=== PATIENT | female | born 1965 | race Two or more races ===

== ENCOUNTER 2016-07-06 10:44 | Emergency (ER) | payer SELFPAY ==
[~2016-07-06] VITALS: Ht 157.5 cm; Wt 66.2 kg
[2016-07-06 16:56] LABS: Basophils # (auto) 0 uL; Basophils % (auto) 0.6 % (0.0-2.0); Eosinophils # (auto) 0.1 uL; Eosinophils % (auto) 1.2 % (0.0-7.0); Hematocrit 38.9 % (36.0-46.0); Hemoglobin 12.9 g/dL (12.2-16.2); Lymphocytes # (auto) 0.9 uL; Lymphocytes % (auto) 15.6 % (10.0-50.0); Mean Corpuscular Hemoglobin 28.2 pg (28.0-32.0); Mean Corpuscular Hgb Conc. 33.2 g/dL (32.0-36.0); Mean Corpuscular Volume 85.1 fL (80.0-100.0); Mean Platelet Volume 8.5 fL (7.4-10.4); Monocytes # (auto) 0.3 uL; Monocytes % (auto) 4.2 % (0.0-12.0); Neutrophils # (auto) 4.7 uL; Neutrophils % (auto) 78.4 % (37.0-80.0); Platelet Count (auto) 272 10^3/uL (140-450); Red Cell Distribution Width 14.8 % (11.6-16.0)
[2016-07-06] MEDS ORDERED: MORPHINE SULFATE 4 MG/ML SYRG IV ONE (17:00)
[2016-07-06] MEDS ORDERED: ONDANSETRON HCL 4 MG/2 ML VIAL IV ONE (17:00)
[2016-07-06 17:14] LABS: Albumin 3.8 g/dL (3.4-5.0); BUN/Creatinine Ratio 15.4; Calcium 8.7 mg/dL (8.5-10.1); Potassium 3.5 mmol/L (3.5-5.1)
[2016-07-06 17:17] LABS: Bilirubin, Total 0.3 mg/dL (0.2-1.0); Total Protein 7.9 g/dL (6.4-8.2)
[2016-07-06 19:30] VITALS: BP 115/74
== END 2016-07-06 20:43 | disposition home or self-care (01) ==
LOC: ER 10:46
DX: G89.4 Chronic pain syndrome (principal); M54.2 Cervicalgia; R73.9 Hyperglycemia, unspecified; M06.9 Rheumatoid arthritis, unspecified
CPT/HCPCS: 36415; 72125; 72128; 80053; 85025; 85049; 85652; 93005; 96374; 96375; 99285; J2270; J2405